=== PATIENT | female | born 1965 | race Hispanic/Latino ===

== ENCOUNTER 2020-08-19 11:01 | Emergency (ER) | payer SELFPAY ==
[~2020-08-19] VITALS: Ht 157.5 cm; Wt 61.2 kg
[~2020-08-19 11:01] MED LIST: LISINOPRIL10 MG PO; NAPROSYN500 MG PO; THYROID MED PO
[2020-08-19] MEDS ORDERED: MAGNESIUM/ALUMINUM/SIMETHICONE 30 ML UDC PO ONE (11:30)
[2020-08-19] MEDS ORDERED: LIDOCAINE VISC 2% SOLN 15 ML UDC PO ONE (11:30)
[2020-08-19] MEDS ORDERED: BELLADONNA ALK/PHENOBARBITAL 5 ML UDC PO ONE (11:30)
== END 2020-08-19 12:44 | disposition home or self-care (01) ==
LOC: ER 11:03
DX: R10.13 Epigastric pain (principal); K21.9 Gastro-esophageal reflux disease without esophagitis; E78.5 Hyperlipidemia, unspecified; Z87.442 Personal history of urinary calculi; F17.210 Nicotine dependence, cigarettes, uncomplicated
CPT/HCPCS: 99283

== ENCOUNTER 2020-10-22 10:03 | Emergency (ER) | payer SELFPAY ==
[~2020-10-22] VITALS: Ht 157.5 cm; Wt 61.2 kg
[2020-10-22] MEDS ORDERED: KETOROLAC TROMETHAMINE 30 MG/ML VIAL IV STA (10:29)
[2020-10-22 10:49] LABS: BASOPHILS # (AUTO) 0.1 (0.0-0.1); BASOPHILS % 0.9 % (0.0-1.0); EOSINOPHILS # (AUTO) 0.3 (0.0-0.4); EOSINOPHILS % 4.4 % (0.0-6.0); HEMATOCRIT 36.2 % (34.2-44.1); HEMOGLOBIN 12.3 g/dL (12.0-16.0); LYMPHOCYTES # (AUTO) 1.9 (1.0-3.2); LYMPHOCYTES % 33.2 % (18.0-39.1); MEAN CORPUSCULAR VOLUME 103.1 fL (81-99); MONOCYTES # (AUTO) 0.5 (0.2-0.8); MONOCYTES % 8.1 % (4.4-11.3); RED BLOOD COUNT 3.51 x10e6/uL (3.6-5.1); RED CELL DISTRIBUTION WIDTH 14.6 % (11.7-14.4)
[2020-10-22 10:50] LABS: PLATELET COUNT 58 x10e3/uL (140-360)
[2020-10-22 11:06] LABS: ALANINE AMINOTRANSFERASE 166 IU/L (0-55); ALBUMIN 3.5 g/dL (3.5-5.0); ALBUMIN/GLOBULIN RATIO 1.1 (0.8-2.0); ALKALINE PHOSPHATASE 294 IU/L (40-150); ANION GAP 13.3 mmol/L (8-16); BLOOD UREA NITROGEN 7 mg/dL (7-26); BUN/CREATININE RATIO 10 (6-25); CARBON DIOXIDE 23 mmol/L (22-29); CHLORIDE 108 mmol/L (98-107); CREATININE, SERUM 0.67 mg/dL (0.57-1.11); EST GLOMERULAR FILTRATION RATE > 60 ML/MIN (60-); GLUCOSE 136 mg/dL (74-118); POTASSIUM 4.3 mmol/L (3.5-5.1); SODIUM 140 mmol/L (136-145)
== END 2020-10-22 11:36 | disposition home or self-care (01) ==
LOC: ER 10:32
DX: R07.89 Other chest pain (principal); I10 Essential (primary) hypertension; M19.019 Primary osteoarthritis, unspecified shoulder
CPT/HCPCS: 36415; 71045; 80053; 83690; 84484; 85025; 93005; 99284; J1885

== ENCOUNTER 2020-11-23 10:52 | Emergency (ER) | payer SELFPAY ==
[~2020-11-23] VITALS: Ht 157.5 cm; Wt 61.2 kg
[2020-11-23 12:39] VITALS: BP 143/79
== END 2020-11-23 12:47 | disposition home or self-care (01) ==
LOC: ER 11:12
DX: S06.0X0A Concussion without loss of consciousness, initial encounter (principal); W18.30XA Fall on same level, unspecified, initial encounter; Y93.01 Activity, walking, marching and hiking; Y92.008 Other place in unspecified non-institutional (private) residence as the place of occurrence of the external cause; I10 Essential (primary) hypertension; E78.5 Hyperlipidemia, unspecified; K21.9 Gastro-esophageal reflux disease without esophagitis; Z87.442 Personal history of urinary calculi; F17.210 Nicotine dependence, cigarettes, uncomplicated
CPT/HCPCS: 70450; 99283

== ENCOUNTER 2021-02-16 09:10 | Emergency (ER) ==
[~2021-02-16] VITALS: Ht 157.5 cm; Wt 61.2 kg
[2021-02-16] MEDS ORDERED: OXYMETAZOLINE HCL 0.05% NAS 1 SPRAY BTL ONE (09:29)
[2021-02-16] MEDS ORDERED: OXYMETAZOLINE HCL 0.05% NAS 1 SPRAY BTL NR (09:30)
[2021-02-16 12:31] VITALS: BP 156/69
== END 2021-02-16 12:32 | disposition home or self-care (01) ==
LOC: ER 09:15
DX: R04.0 Epistaxis (principal); R05 Cough; J40 Bronchitis, not specified as acute or chronic; M79.18 Myalgia, other site; I10 Essential (primary) hypertension; E78.5 Hyperlipidemia, unspecified; K21.9 Gastro-esophageal reflux disease without esophagitis; Z87.442 Personal history of urinary calculi
CPT/HCPCS: 71045; 99283

== ENCOUNTER 2021-03-25 16:03 | Inpatient (IN) | payer SELFPAY ==
[~2021-03-25] VITALS: Ht 157.5 cm; Wt 75.7 kg
[2021-03-25] MEDS ORDERED: ONDANSETRON HCL INJ 2MG/ML 2ML 2 MG/ML VIAL IV STA (17:18)
[2021-03-25] MEDS ORDERED: SODIUM CHLORIDE 0.9% 1000ML 1,000 ML IV ONE ×2 (17:30→18:00)
[2021-03-25 17:42] LABS: BASOPHILS # (AUTO) 0.2 (0.0-0.1); BASOPHILS % 0.8 % (0.0-1.0); EOSINOPHILS # (AUTO) 0.6 (0.0-0.4); EOSINOPHILS % 3.1 % (0.0-6.0); HEMATOCRIT 26.6 % (34.2-44.1); HEMOGLOBIN 8.7 g/dL (12.0-16.0); LYMPHOCYTES % 20.6 % (18.0-39.1); MEAN CORPUSCULAR HEMOGLOBIN 35.7 pg (28-32); MEAN CORPUSCULAR HGB CONC 32.7 g/dL (31-35); MONOCYTES # (AUTO) 1.3 (0.2-0.8); MONOCYTES % 6.4 % (4.4-11.3); NEUTROPHILS # (AUTO) 13.2 (2.1-6.9); NEUTROPHILS % 67.6 % (38.7-80.0); PLATELET COUNT 133 x10e3/uL (140-360); RED BLOOD COUNT 2.44 x10e6/uL (3.6-5.1)
[2021-03-25 17:51] LABS: INR 1.64; PROTHROMBIN TIME 20.3 seconds (11.9-14.5)
[2021-03-25 17:52] LABS: PARTIAL THROMBOPLASTIN TIME 36.2 seconds (23.8-35.5)
[2021-03-25 17:57] LABS: AMYLASE 46 U/L (25-125); LIPASE 87 U/L (8-78)
[2021-03-25 17:59] LABS: ALBUMIN 2.3 g/dL (3.5-5.0); ALBUMIN/GLOBULIN RATIO 0.6 (0.8-2.0); ANION GAP 10.8 mmol/L (8-16); CREATININE, SERUM 0.67 mg/dL (0.57-1.11); POTASSIUM 4.8 mmol/L (3.5-5.1)
[2021-03-25] MEDS ORDERED: CEFEPIME 1 GM in SODIUM CHLORIDE 0.9% 50ML 50 ML IV ONE (18:00)
[2021-03-25 18:06] LABS: CREATINE KINASE MB 0.5 ng/mL (0-5.0)
[2021-03-25] MEDS ORDERED: CEFEPIME HCL 1 GM VIAL ONE (18:10)
[2021-03-25] MEDS ORDERED: SODIUM CHLORIDE 0.9% 50ML 50 ML ONE (19:16)
[2021-03-25] MEDS ORDERED: IOPAMIDOL 370 MG/ML 200 ML INFUS..BTL INJ ONE (19:16)
[2021-03-25] MEDS ORDERED: SODIUM CHLORIDE 0.9% 1000ML 1,000 ML ONE (19:50)
[2021-03-25] MEDS ORDERED: LISINOPRIL-HCT1 EAC2 PO (19:57)
[2021-03-25] MEDS ORDERED: CYCLOBENZAPRINE5 MG PO (19:57)
[2021-03-25 21:15] LABS: CLARITY,URINE CLEAR (CLEAR); COLOR,URINE YELLOW (YELLOW); KETONES,URINE NEGATIVE (NEGATIVE); LEUKOCYTE ESTERASE ,URINE NEGATIVE (NEGATIVE); NITRITE,URINE NEGATIVE (NEGATIVE); PROTEIN,URINE DIPSTICK NEGATIVE (NEGATIVE)
[2021-03-25 21:16] LABS: AMPHETAMINES SCREEN,URINE NEGATIVE (NEGATIVE); BENZODIAZEPINES SCREEN,URINE NEGATIVE (NEGATIVE); PHENCYCLIDINE SCREEN,URINE NEGATIVE (NEGATIVE); URINE UROBILINOGEN 0.2 mg/dL (0.2 - 1)
[2021-03-25 21:18] LABS: BACTERIA,URINE RARE /HPF; EPITHELIAL CELLS,URINE RARE /LPF; RBC,URINE 0-5 /HPF (0-5); WBC,URINE (MAN) 0-5 /HPF (0-5)
[2021-03-25 21:29] LABS: EOSINOPHILS % (MANUAL) 4 % (0-7); LYMPHOCYTES % (MANUAL) 10 % (19-48); MONOCYTES % (MANUAL) 4 % (3.4-9.0); NEUTROPHILS % (MANUAL) 80 % (40-74)
[2021-03-25 21:30] LABS: PLATELET ESTIMATE SLIGHTLY DECREASED; PLATELET MORPHOLOGY COMMENT NORMAL
[2021-03-25] MEDS ORDERED: SODIUM CHLORIDE 0.9% 250ML 250 ML IV ONE (21:30)
[2021-03-25 21:31] LABS: ANISOCYTOSIS SLIGHT; POLYCHROMASIA FEW
[2021-03-25 22:14] VITALS: BP 117/75
[2021-03-25 22:20] VITALS: BP 117/75
[2021-03-25 22:28] VITALS: BP 117/75
[2021-03-25] MEDS: SODIUM CHLORIDE 0.9% 1000ML 1,000 ML IV SCH (23:05)
[2021-03-25 23:08] VITALS: BP 114/71
[2021-03-26] VITALS (26 sets, daily range): BP systolic 102–139; BP diastolic 59–78
[2021-03-26] MEDS: OCTREOTIDE ACETATE 500 MCG in SODIUM CHLORIDE 0.9% 250ML 250 ML IV SCH ×4 (00:17→21:04)
[2021-03-26 00:43] LABS: HEMOGLOBIN 7.5 g/dL (12.0-16.0)
[2021-03-26 00:45] LABS: HEMATOCRIT 22.7 % (34.2-44.1)
[2021-03-26] MEDS: CEFEPIME 1 GM in SODIUM CHLORIDE 0.9% 50ML 50 ML IV SCH ×3 (04:38→18:33)
[2021-03-26 04:59] LABS: BASOPHILS # (AUTO) 0.1 (0.0-0.1); BASOPHILS % 0.6 % (0.0-1.0); EOSINOPHILS # (AUTO) 0.7 (0.0-0.4); EOSINOPHILS % 6.4 % (0.0-6.0); LYMPHOCYTES # (AUTO) 3.2 (1.0-3.2); LYMPHOCYTES % 28.6 % (18.0-39.1); MEAN CORPUSCULAR HEMOGLOBIN 35.3 pg (28-32); MEAN CORPUSCULAR HGB CONC 32.2 g/dL (31-35); MEAN CORPUSCULAR VOLUME 109.8 fL (81-99); MONOCYTES # (AUTO) 0.7 (0.2-0.8); MONOCYTES % 6.3 % (4.4-11.3); NEUTROPHILS # (AUTO) 6.5 (2.1-6.9); NEUTROPHILS % 57.3 % (38.7-80.0); PLATELET COUNT 76 x10e3/uL (140-360); RED BLOOD COUNT 1.84 x10e6/uL (3.6-5.1); RED CELL DISTRIBUTION WIDTH 16.6 % (11.7-14.4)
[2021-03-26 05:04] LABS: HEMATOCRIT 20.2 % (34.2-44.1); HEMOGLOBIN 6.5 g/dL (12.0-16.0)
[2021-03-26 05:17] LABS: ALBUMIN 2.1 g/dL (3.5-5.0); ALBUMIN/GLOBULIN RATIO 0.7 (0.8-2.0); ANION GAP 10.5 mmol/L (8-16); CALCIUM 7.6 mg/dL (8.4-10.2); CREATININE, SERUM 0.62 mg/dL (0.57-1.11); POTASSIUM 4.5 mmol/L (3.5-5.1)
[2021-03-26] MEDS ORDERED: PROPRANOLOL HCL 1 MG/ML VIAL IV ONE (05:30)
[2021-03-26] MEDS ORDERED: SODIUM CHLORIDE 0.9% 250ML 250 ML ONE (05:56)
[2021-03-26] MEDS ORDERED: PROPRANOLOL HCL 10 MG TAB PO ONE (06:00)
[2021-03-26] MEDS ORDERED: SODIUM CHLORIDE 0.9% 250ML 250 ML IV ONE (06:00)
[2021-03-26] MEDS ORDERED: PROPRANOLOL HCL 10 MG TAB ONE (06:12)
[2021-03-26 07:26] LABS: POLYCHROMASIA FEW
[2021-03-26 07:27] LABS: PLATELET ESTIMATE MODERATELY DECREASED
[2021-03-26 07:28] LABS: PLATELET MORPHOLOGY COMMENT NORMAL; RBC MORPHOLOGY COMMENT ABNORMAL
[2021-03-26] MEDS: SODIUM CHLORIDE 0.9% 1000ML 1,000 ML IV SCH ×3 (07:56→23:34)
[2021-03-26] MEDS ORDERED: PROPRANOLOL HCL 1 MG/ML VIAL IV SCH (09:00)
[2021-03-26] MEDS ORDERED: FUROSEMIDE INJ 10 MG/ML 2 ML VIAL IV ONE ×2 (09:00→16:00)
[2021-03-26] MEDS ORDERED: LACTULOSE SYRUP 20 GM/30 ML UDC PO PRN (09:15)
[2021-03-26] MEDS ORDERED: PHYTONADIONE 10 MG/ML AMP SQ ONE (10:00)
[2021-03-26 10:33] LABS: FREE THYROXINE INDEX 1.6474 (1.4-3.8); THYROID STIMULATING HORMONE 1.139 uIU/mL (0.350-4.940)
[2021-03-26 16:32] LABS: BASOPHILS # (AUTO) 0.1 (0.0-0.1); EOSINOPHILS # (AUTO) 1.3 (0.0-0.4); EOSINOPHILS % 13.6 % (0.0-6.0); HEMATOCRIT 28.2 % (34.2-44.1); HEMOGLOBIN 9.4 g/dL (12.0-16.0); LYMPHOCYTES # (AUTO) 2.5 (1.0-3.2); LYMPHOCYTES % 25.5 % (18.0-39.1); MEAN CORPUSCULAR HEMOGLOBIN 33.6 pg (28-32); MEAN CORPUSCULAR HGB CONC 33.3 g/dL (31-35); MEAN CORPUSCULAR VOLUME 100.7 fL (81-99); MONOCYTES # (AUTO) 0.7 (0.2-0.8); MONOCYTES % 7.5 % (4.4-11.3); NEUTROPHILS % 51.9 % (38.7-80.0); PLATELET COUNT 67 x10e3/uL (140-360)
[2021-03-26] MEDS: PROPRANOLOL HCL 10 MG TAB PO SCH (18:21)
[2021-03-26] MEDS ORDERED: HYDRALAZINE HCL 20 MG/ML VIAL ONE (20:45)
[2021-03-27] VITALS (15 sets, daily range): BP systolic 106–136; BP diastolic 60–88
[2021-03-27] MEDS ORDERED: SODIUM CHLORIDE 0.9% 50ML 50 ML IV SCH (00:45)
[2021-03-27] MEDS ORDERED: PHYTONADIONE 10 MG/ML AMP IV ONE (00:45)
[2021-03-27] MEDS ORDERED: PHYTONADIONE 10MG/ML 2 ML ONE (00:54)
[2021-03-27] MEDS ORDERED: SODIUM CHLORIDE 0.9% 50ML 50 ML ONE (00:55)
[2021-03-27] MEDS ORDERED: PHYTONADIONE 10MG/ML 20 MG in SODIUM CHLORIDE 0.9% 50ML 50 ML IV ONE (01:00)
[2021-03-27] MEDS: CEFEPIME 1 GM in SODIUM CHLORIDE 0.9% 50ML 50 ML IV SCH ×2 (01:59→09:26)
[2021-03-27 04:53] LABS: BASOPHILS # (AUTO) 0.1 (0.0-0.1); BASOPHILS % 0.7 % (0.0-1.0); EOSINOPHILS # (AUTO) 0.6 (0.0-0.4); EOSINOPHILS % 7.5 % (0.0-6.0); HEMATOCRIT 29.4 % (34.2-44.1); LYMPHOCYTES % 24.3 % (18.0-39.1); MEAN CORPUSCULAR HEMOGLOBIN 34.2 pg (28-32); MEAN CORPUSCULAR VOLUME 100.7 fL (81-99); MONOCYTES # (AUTO) 0.6 (0.2-0.8); MONOCYTES % 7.2 % (4.4-11.3); NEUTROPHILS % 59.3 % (38.7-80.0); PLATELET COUNT 63 x10e3/uL (140-360); RED BLOOD COUNT 2.92 x10e6/uL (3.6-5.1); RED CELL DISTRIBUTION WIDTH 17.8 % (11.7-14.4)
[2021-03-27 05:07] LABS: INR 1.64; PROTHROMBIN TIME 20.3 seconds (11.9-14.5)
[2021-03-27 05:17] LABS: ALBUMIN 1.9 g/dL (3.5-5.0); ALBUMIN/GLOBULIN RATIO 0.7 (0.8-2.0); ANION GAP 7.6 mmol/L (8-16); CALCIUM 7.1 mg/dL (8.4-10.2); CREATININE, SERUM 0.61 mg/dL (0.57-1.11); POTASSIUM 3.6 mmol/L (3.5-5.1)
[2021-03-27] MEDS: PROPRANOLOL HCL 10 MG TAB PO SCH (09:00)
== END 2021-03-27 13:15 | disposition left against medical advice (07) | DRG 432 ==
LOC: ER 17:43 → ERHOLD 21:24 → ICU 21:56
PROVIDERS: ADMIT Internal Medicine; ATTEND Internal Medicine
PROC: 02HV33Z Insertion of Infusion Device into Superior Vena Cava, Percutaneous Approach (ICD-10-PCS; principal; 2021-03-26)
PROC: 30233N1 Transfusion of Nonautologous Red Blood Cells into Peripheral Vein, Percutaneous Approach (ICD-10-PCS; 2021-03-26)
DX: K70.31 Alcoholic cirrhosis of liver with ascites (principal); I85.11 Secondary esophageal varices with bleeding; D62 Acute posthemorrhagic anemia; F10.21 Alcohol dependence, in remission; Z72.0 Tobacco use; I10 Essential (primary) hypertension; K21.9 Gastro-esophageal reflux disease without esophagitis; E78.5 Hyperlipidemia, unspecified; Z87.442 Personal history of urinary calculi
CPT/HCPCS: 36415; 36569; 71045; 74177; 80053; 80074; 80307; 80320; 81001; 82105; 82140; 82150; 82550; 82553; 82607; 82746; 83605; 83690; 84436; 84443; 84479; 84484; 85014; 85018; 85025; 85610; 85730; 86704; 86850; 86900; 86920; 87040; 93005; 99284; J0360; J0692; J1940; J2353; J2405; J3430; J7030; J7050; P9016; Q9967

== ENCOUNTER 2021-04-20 20:53 | Emergency (ER) | payer SELFPAY ==
[~2021-04-20] VITALS: Ht 157.5 cm; Wt 68.0 kg
[~2021-04-20 20:53] MED LIST changes: +CYCLOBENZAPRINE5 MG PO; +LISINOPRIL-HCT1 EAC2 PO
== END 2021-04-20 23:20 | disposition left against medical advice (07) ==
LOC: ER 21:13
DX: S00.81XA Abrasion of other part of head, initial encounter (principal); W18.2XXA Fall in (into) shower or empty bathtub, initial encounter; Y93.E1 Activity, personal bathing and showering; Y92.002 Bathroom of unspecified non-institutional (private) residence as the place of occurrence of the external cause; I10 Essential (primary) hypertension; E78.5 Hyperlipidemia, unspecified; K76.9 Liver disease, unspecified; K21.9 Gastro-esophageal reflux disease without esophagitis; Z87.442 Personal history of urinary calculi; F17.210 Nicotine dependence, cigarettes, uncomplicated
CPT/HCPCS: 70450; 72125; 93005

== ENCOUNTER 2022-09-08 12:10 | Emergency (ER) | payer SELFPAY ==
[~2022-09-08] VITALS: Ht 157.5 cm; Wt 68.0 kg
[2022-09-08] MEDS ORDERED: METHYLPREDNISOLONE SOD SUCC 125 MG/2ML VIAL IV STA (12:33)
[2022-09-08 12:44] LABS: BASOPHILS # (AUTO) 0.1 (0.0-0.1); BASOPHILS % 1.6 % (0.0-1.0); EOSINOPHILS # (AUTO) 0.4 (0.0-0.4); EOSINOPHILS % 6.1 % (0.0-6.0); HEMATOCRIT 36.9 % (34.2-44.1); HEMOGLOBIN 12.5 g/dL (12.0-16.0); LYMPHOCYTES # (AUTO) 2.7 (1.0-3.2); LYMPHOCYTES % 46.8 % (18.0-39.1); MEAN CORPUSCULAR HEMOGLOBIN 36.7 pg (28-32); MEAN CORPUSCULAR HGB CONC 33.9 g/dL (31-35); MEAN CORPUSCULAR VOLUME 108.2 fL (81-99); MONOCYTES # (AUTO) 0.5 (0.2-0.8); MONOCYTES % 7.8 % (4.4-11.3); NEUTROPHILS # (AUTO) 2.2 (2.1-6.9); NEUTROPHILS % 37.5 % (38.7-80.0); PLATELET COUNT 73 x10e3/uL (140-360); RED BLOOD COUNT 3.41 x10e6/uL (3.6-5.1)
[2022-09-08] MEDS ORDERED: SODIUM CHLORIDE 0.9% 500ML 500 ML IV ONE (12:45)
[2022-09-08] MEDS ORDERED: ALBUTEROL/IPRATROPIUM 3 ML NEB NEB ONE (12:45)
[2022-09-08 12:58] LABS: INR 1.68
[2022-09-08 12:59] LABS: PARTIAL THROMBOPLASTIN TIME 44.6 seconds (23.8-35.5)
[2022-09-08 13:06] LABS: ALBUMIN 2.8 g/dL (3.5-5.0); ALBUMIN/GLOBULIN RATIO 0.8 (0.8-2.0); ANION GAP 13.8 mmol/L (8-16); CALCIUM 8.1 mg/dL (8.4-10.2); CREATININE, SERUM 0.62 mg/dL (0.57-1.11); MAGNESIUM 1.5 MG/DL (1.3-2.1); POTASSIUM 3.8 mmol/L (3.5-5.1)
[2022-09-08] MEDS ORDERED: PROAIR RESPICL90 MCG INH (14:51)
[2022-09-08] MEDS ORDERED: DOXYCYCLINE HY100 M3 PO (14:51)
[2022-09-08] MEDS ORDERED: PREDNISONE20 MG PO (14:51)
== END 2022-09-08 15:17 | disposition home or self-care (01) ==
LOC: ER 12:20
DX: J40 Bronchitis, not specified as acute or chronic (principal); R55 Syncope and collapse; I10 Essential (primary) hypertension; K74.60 Unspecified cirrhosis of liver; Z20.822 Contact with and (suspected) exposure to COVID-19; Z79.899 Other long term (current) drug therapy; Z87.891 Personal history of nicotine dependence
CPT/HCPCS: 36415; 70450; 71045; 72125; 80053; 82550; 82553; 83735; 83880; 84484; 85025; 85610; 85730; 87040; 93005; 94799; 99284; J2930; J7040; U0002

== ENCOUNTER 2022-10-17 20:54 | Emergency (ER) | payer SELFPAY ==
[~2022-10-17] VITALS: Ht 157.5 cm; Wt 68.0 kg
[~2022-10-17 20:54] MED LIST changes: +DOXYCYCLINE HY100 M3 PO; +PREDNISONE20 MG PO; +PROAIR RESPICL90 MCG INH
[2022-10-17 21:47] LABS: BASOPHILS # (AUTO) 0.1 (0.0-0.1); BASOPHILS % 1.3 % (0.0-1.0); EOSINOPHILS # (AUTO) 0.4 (0.0-0.4); EOSINOPHILS % 6.7 % (0.0-6.0); HEMATOCRIT 38.2 % (34.2-44.1); HEMOGLOBIN 12.9 g/dL (12.0-16.0); LYMPHOCYTES # (AUTO) 2.5 (1.0-3.2); LYMPHOCYTES % 44.9 % (18.0-39.1); MEAN CORPUSCULAR HEMOGLOBIN 35.5 pg (28-32); MEAN CORPUSCULAR HGB CONC 33.8 g/dL (31-35); MEAN CORPUSCULAR VOLUME 105.2 fL (81-99); MONOCYTES # (AUTO) 0.4 (0.2-0.8); MONOCYTES % 7.5 % (4.4-11.3); NEUTROPHILS # (AUTO) 2.2 (2.1-6.9); NEUTROPHILS % 39.2 % (38.7-80.0); PLATELET COUNT 51 x10e3/uL (140-360); RED BLOOD COUNT 3.63 x10e6/uL (3.6-5.1); RED CELL DISTRIBUTION WIDTH 14.1 % (11.7-14.4)
[2022-10-17 21:52] LABS: ANION GAP 15.7 mmol/L (8-16); CREATININE, SERUM 0.62 mg/dL (0.57-1.11); POTASSIUM 3.7 mmol/L (3.5-5.1)
[2022-10-17 21:55] LABS: CREATINE KINASE MB 4.5 ng/mL (0-5.0)
== END 2022-10-17 22:50 | disposition home or self-care (01) ==
LOC: ER 21:10
DX: R07.9 Chest pain, unspecified (principal); I10 Essential (primary) hypertension; E78.5 Hyperlipidemia, unspecified; K76.9 Liver disease, unspecified; K21.9 Gastro-esophageal reflux disease without esophagitis; R94.31 Abnormal electrocardiogram [ECG] [EKG]
CPT/HCPCS: 36415; 71045; 80048; 82550; 82553; 84484; 85025; 93005; 99284

== ENCOUNTER 2023-02-19 09:41 | Emergency (ER) | payer OTHER ==
[~2023-02-19] VITALS: Ht 157.5 cm; Wt 68.0 kg
[2023-02-19 10:35] LABS: ALBUMIN 2.9 g/dL (3.5-5.0); ALBUMIN/GLOBULIN RATIO 0.7 (0.8-2.0); ANION GAP 12.6 mmol/L (8-16); CALCIUM 8.1 mg/dL (8.4-10.2); CREATININE, SERUM 0.64 mg/dL (0.57-1.11); POTASSIUM 3.6 mmol/L (3.5-5.1)
[2023-02-19 11:57] LABS: BASOPHILS # (AUTO) 0.1 (0.0-0.1); BASOPHILS % 0.9 % (0.0-1.0); EOSINOPHILS % 0.3 % (0.0-6.0); HEMATOCRIT 34.4 % (34.2-44.1); HEMOGLOBIN 12.1 g/dL (12.0-16.0); LYMPHOCYTES # (AUTO) 1.3 (1.0-3.2); LYMPHOCYTES % 19.1 % (18.0-39.1); MEAN CORPUSCULAR HEMOGLOBIN 35.9 pg (28-32); MEAN CORPUSCULAR HGB CONC 35.2 g/dL (31-35); MEAN CORPUSCULAR VOLUME 102.1 fL (81-99); MONOCYTES # (AUTO) 0.5 (0.2-0.8); MONOCYTES % 7.2 % (4.4-11.3); NEUTROPHILS # (AUTO) 4.8 (2.1-6.9); NEUTROPHILS % 71.4 % (38.7-80.0); PLATELET COUNT 84 x10e3/uL (140-360); RED BLOOD COUNT 3.37 x10e6/uL (3.6-5.1)
[2023-02-19] MEDS ORDERED: NICARDIPINE 20MG/200ML PREMIX 200 ML IV SCH (12:00)
[2023-02-19] MEDS ORDERED: ONDANSETRON HCL INJ 2MG/ML 2ML 2 MG/ML VIAL IV STA (12:01)
[2023-02-19 12:13] LABS: INR 3.54
[2023-02-19 12:15] LABS: PROTHROMBIN TIME 35.7 seconds (11.9-14.5)
[2023-02-19 12:27] VITALS: O2SAT 100
== END 2023-02-19 12:40 | disposition other institution (70) ==
LOC: ER 09:46
DX: S06.360A Traumatic hemorrhage of cerebrum, unspecified, without loss of consciousness, initial encounter (principal); W01.198A Fall on same level from slipping, tripping and stumbling with subsequent striking against other object, initial encounter; Y93.01 Activity, walking, marching and hiking; Y92.89 Other specified places as the place of occurrence of the external cause; I10 Essential (primary) hypertension; E78.5 Hyperlipidemia, unspecified; K21.9 Gastro-esophageal reflux disease without esophagitis; K76.9 Liver disease, unspecified; Z87.442 Personal history of urinary calculi; F17.210 Nicotine dependence, cigarettes, uncomplicated
CPT/HCPCS: 0223U; 36415; 70450; 70486; 72125; 73090; 73130; 80053; 80320; 85025; 85610; 85730; 99284; J2405

== ENCOUNTER 2024-08-17 04:25 | Emergency (ER) | payer OTHER ==
[~2024-08-17] VITALS: Ht 157.5 cm; Wt 68.0 kg
[2024-08-17 04:33] VITALS: PULSE 72; RESP 22; TEMP 97.8; O2SAT 98
== END 2024-08-17 04:55 | disposition home or self-care (01) ==
LOC: ER 04:37
DX: F10.129 Alcohol abuse with intoxication, unspecified (principal); I10 Essential (primary) hypertension; E78.5 Hyperlipidemia, unspecified; K76.9 Liver disease, unspecified; K21.9 Gastro-esophageal reflux disease without esophagitis; Z87.442 Personal history of urinary calculi
CPT/HCPCS: 99282

== ENCOUNTER → 2024-08-30 | Outpatient (REF) | payer OTHER | LOC: RAD 09:42 | PROVIDERS: ATTEND Internal Medicine | DX: M19.071 Primary osteoarthritis, right ankle and foot (principal); M25.561 Pain in right knee ==

== ENCOUNTER 2025-03-31 19:18 | Inpatient (IN) | payer OTHER ==
[~2025-03-31] VITALS: Ht 157.5 cm; Wt 94.3 kg
[2025-03-31] VITALS (10 sets, daily range): BP systolic 68–85; BP diastolic 37–54; PULSE 55–80; RESP 12–20; TEMP 93.4–97.8; O2SAT 100
[2025-03-31 20:07] LABS: BASOPHILS % 0.6 % (0.0-1.0); EOSINOPHILS % 3.3 % (0.0-6.0); LYMPHOCYTES % 28.6 % (18.0-39.1); MONOCYTES % 15.4 % (4.4-11.3); NEUTROPHILS % 50.8 % (38.7-80.0); RED CELL DISTRIBUTION WIDTH 19.1 % (11.7-14.4)
[2025-03-31 20:10] LABS: INR 2.43
[2025-03-31] MEDS: SODIUM CHLORIDE 0.9% 1000ML 2,520 ML IV SCH (20:11)
[2025-03-31 20:17] LABS: EST GLOMERULAR FILTRATION RATE 31.0 ML/MIN (>=60)
[2025-03-31] MEDS ORDERED: ONDANSETRON HCL INJ 2MG/ML 2ML 2 MG/ML VIAL IV PRN (21:00)
[2025-03-31] MEDS ORDERED: SODIUM CHLORIDE FLUSH 10 ML SYR INJ PRN (21:00)
[2025-03-31] MEDS ORDERED: LORAZEPAM INJ 2 MG/ML VIAL IV PRN (22:00)
[2025-03-31] MEDS ORDERED: POLYETHYLENE GLYCOL 3350 17 GM PACK PO PRN (22:15)
[2025-03-31] MEDS: ACETAMINOPHEN 325 MG TAB PO STA (22:26)
[2025-03-31] MEDS: THIAMINE HCL INJ 100 MG/ML 2ML VIAL IV ONE (22:29)
[2025-03-31] MEDS: OCTREOTIDE ACETATE 500 MCG in SODIUM CHLORIDE 0.9% 250ML 249 ML IV SCH (22:30)
[2025-03-31] MEDS: SODIUM CHLORIDE 0.9% 1000ML 1,000 ML ONE (22:30)
[2025-03-31] MEDS: MUPIROCIN 2% OINT 22 GM TUBE TOP SCH (22:31)
[2025-03-31] MEDS: PHYTONADIONE 10MG/ML INJ 20 MG in SODIUM CHLORIDE 0.9% 100 ML IV ONE (22:46)
[2025-03-31] MEDS: PHYTONADIONE 10 MG/ML AMP IV STA (22:46)
[2025-03-31] MEDS: VASOPRESSIN 60 UNIT in DEXTROSE 5% 50ML 50 ML IV SCH (23:43)
[2025-04-01] VITALS (99 sets, daily range): BP systolic 59–143; BP diastolic 34–109; PULSE 40–74; RESP 12–30; TEMP 96.6–97.7; O2SAT 97–100
[2025-04-01] MEDS: SODIUM CHLORIDE 0.9% 250ML 250 ML IV ONE (00:21)
[2025-04-01] MEDS: THIAMINE HCL INJ 100 MG/ML 2ML VIAL ONE (01:23)
[2025-04-01] MEDS: SODIUM CHLORIDE 0.9% 1000ML 1,000 ML ONE (01:23)
[2025-04-01] MEDS: MULTIVITAMINS- 12 INJECTION 10 ML, FOLIC ACID MDV 1 MG, THIAMINE HCL INJ 100 MG in SODI... IV ONE (01:55)
[2025-04-01] MEDS: Pantoprazole IV 80 MG in SODIUM CHLORIDE 0.9% 100 ML IV SCH (02:28)
[2025-04-01] MEDS: SODIUM CHLORIDE 0.9% 250ML 250 ML ONE (04:36)
[2025-04-01 08:01] LABS: BASOPHILS % 0.6 % (0.0-1.0); EOSINOPHILS % 3.9 % (0.0-6.0); LYMPHOCYTES % 31.5 % (18.0-39.1); MONOCYTES % 9.2 % (4.4-11.3); NEUTROPHILS % 53.9 % (38.7-80.0); RED CELL DISTRIBUTION WIDTH 25.4 % (11.7-14.4)
[2025-04-01] MEDS: DOCUSATE SODIUM 100 MG CAP PO SCH (08:08)
[2025-04-01] MEDS: MIDODRINE HCL 5 MG TABLET PO SCH (08:08)
[2025-04-01 08:18] LABS: EST GLOMERULAR FILTRATION RATE 41.0 ML/MIN (>=60); INR 2.02
[2025-04-01 08:29] LABS: CHOL/HDL RATIO 10.1 (3.0-3.6); LDL CHOLESTEROL 85.0 MG/DL (60-130)
[2025-04-01 09:13] LABS: AMPHETAMINES SCREEN,URINE NEGATIVE (NEGATIVE); CANNABINOIDS SCREEN,URINE NEGATIVE (NEGATIVE); COCAINE SCREEN,URINE NEGATIVE (NEGATIVE); METHADONE SCREEN, URINE NEGATIVE (NEGATIVE); OPIATES SCREEN,URINE NEGATIVE (NEGATIVE)
[2025-04-01 09:16] LABS: LEUKOCYTE ESTERASE ,URINE NEGATIVE (NEGATIVE); PROTEIN,URINE DIPSTICK 1+ (NEGATIVE); URINE UROBILINOGEN 1 mg/dL (0.2 - 1)
[2025-04-01 09:42] LABS: WBC,URINE (MAN) 0-5 /HPF (0-5)
[2025-04-01 09:43] LABS: EPITHELIAL CELLS,URINE FEW /LPF
[2025-04-01] MEDS: FUROSEMIDE INJ 10 MG/ML 4 ML VIAL IV ONE (14:05)
[2025-04-01] MEDS: SOD POLYSTYRENE SULFONATE SUSP 15 GM/60 ML BTL PO ONE (14:06)
[2025-04-01] MEDS: SODIUM CHLORIDE 0.9% 1000ML 1,000 ML IV SCH (14:06)
[2025-04-01] MEDS: CALCIUM CARBONATE 500 MG CHEWABLE TABS PO SCH (16:00)
[2025-04-01] MEDS: SODIUM BICARBONATE 650 MG TAB PO SCH (16:02)
[2025-04-01] MEDS: ACETAMINOPHEN 325 MG TAB PO PRN (20:08)
[2025-04-01] MEDS ORDERED: PHYTONADIONE 10 MG/ML AMP IV ONE (21:45)
[2025-04-01] MEDS: PHYTONADIONE 10MG/ML INJ 20 MG in SODIUM CHLORIDE 0.9% 100 ML IV STA (22:47)
[2025-04-02] VITALS (64 sets, daily range): BP systolic 103–143; BP diastolic 52–127; PULSE 39–71; RESP 11–22; TEMP 97.6–98.4; O2SAT 94–100
[2025-04-02] MEDS: FUROSEMIDE INJ 10 MG/ML 4 ML VIAL IV ONE (06:19)
[2025-04-02] MEDS: FOLIC ACID 1 MG TAB PO SCH (08:22)
[2025-04-02] MEDS: MULTIVITAMINS/MINERALS TAB PO SCH (08:22)
[2025-04-02] MEDS: THIAMINE HCL 100 MG TAB PO SCH (08:22)
[2025-04-02] MEDS: MULTIVITAMINS- 12 INJECTION 10 ML, FOLIC ACID MDV 1 MG, THIAMINE HCL INJ 100 MG in SODI... IV ONE (09:09)
[2025-04-02 09:31] LABS: BASOPHILS % 0.8 % (0.0-1.0); EOSINOPHILS % 6.1 % (0.0-6.0); LYMPHOCYTES % 25.8 % (18.0-39.1); MONOCYTES % 10.8 % (4.4-11.3); NEUTROPHILS % 55.9 % (38.7-80.0); RED CELL DISTRIBUTION WIDTH 25.7 % (11.7-14.4)
[2025-04-02 09:42] LABS: CALCIUM IONIZED 1.0 mmol/L (1.09-1.30)
[2025-04-02 10:11] LABS: EST GLOMERULAR FILTRATION RATE 33.0 ML/MIN (>=60); PHOSPHORUS 3.6 MG/DL (2.3-4.7)
[2025-04-02] MEDS: MAGNESIUM SULF 1GRAM/DEXTROSE 100 ML IV SCH (11:13)
[2025-04-02 11:29] LABS: ABG BASE EXCESS -8.0 mmol/L (-2 - 3); ABG HCO3 19 mmol/L (22-26); ABG OXYGEN SATURATION 45.0 % (95-98); ABG PCO2 37 mmHg (35-45); ABG PH 7.30 (7.35-7.45); ABG PO2 27 mmHg (80-105); ABG TCO2 20
[2025-04-03] VITALS (26 sets, daily range): BP systolic 111–181; BP diastolic 63–118; PULSE 50–71; RESP 13–20; TEMP 97.5–98.7; O2SAT 95–100
[2025-04-03] MEDS ORDERED: PHYTONADIONE 10 MG/ML AMP IV ONE (01:45)
[2025-04-03] MEDS: PHYTONADIONE 10MG/ML INJ 20 MG in SODIUM CHLORIDE 0.9% 100 ML IV ONE (01:57)
[2025-04-03 06:35] LABS: BASOPHILS % 0.7 % (0.0-1.0); EOSINOPHILS % 4.1 % (0.0-6.0); LYMPHOCYTES % 20.9 % (18.0-39.1); MONOCYTES % 11.2 % (4.4-11.3); NEUTROPHILS % 62.0 % (38.7-80.0); RED CELL DISTRIBUTION WIDTH 25.6 % (11.7-14.4)
[2025-04-03 06:50] LABS: INR 1.81
[2025-04-03 06:56] LABS: EST GLOMERULAR FILTRATION RATE 47.0 ML/MIN (>=60); PHOSPHORUS 2.5 MG/DL (2.3-4.7)
[2025-04-03] MEDS: SODIUM CHLORIDE 0.9% 250ML 250 ML IV ONE (09:14)
[2025-04-03] MEDS: SODIUM CHLORIDE 0.9% 250ML 250 ML ONE (09:15)
[2025-04-03 10:31] LABS: ABG BASE EXCESS -8.0 mmol/L (-2 - 3); ABG HCO3 18 mmol/L (22-26); ABG OXYGEN SATURATION 88.0 % (95-98); ABG PCO2 35 mmHg (35-45); ABG PH 7.32 (7.35-7.45); ABG PO2 58 mmHg (80-105); ABG TCO2 19
[2025-04-04] VITALS (19 sets, daily range): BP systolic 102–180; BP diastolic 49–90; PULSE 56–86; RESP 13–21; TEMP 98–98.5; O2SAT 97–100
[2025-04-04] MEDS: SODIUM CHLORIDE 0.9% IV ONE (01:54)
[2025-04-04] MEDS: PHYTONADIONE IV ONE (01:54)
[2025-04-04] MEDS: HYDRALAZINE HCL 20 MG/ML VIAL IV PRN (02:26)
[2025-04-04 05:57] LABS: BASOPHILS % 0.9 % (0.0-1.0); EOSINOPHILS % 3.7 % (0.0-6.0); LYMPHOCYTES % 23.3 % (18.0-39.1); MONOCYTES % 15.2 % (4.4-11.3); NEUTROPHILS % 55.5 % (38.7-80.0); RED CELL DISTRIBUTION WIDTH 24.7 % (11.7-14.4)
[2025-04-04 06:38] LABS: EST GLOMERULAR FILTRATION RATE 78.0 ML/MIN (>=60)
[2025-04-04 08:23] LABS: BASOPHILS % (MANUAL) 1 % (0-1.5); EOSINOPHILS % (MANUAL) 5 % (0-7); LYMPHOCYTES % (MANUAL) 12 % (19-48); MONOCYTES % (MANUAL) 9 % (3.4-9.0); NEUTROPHILS % (MANUAL) 73 % (40-74); NUCLEATED RED BLOOD CELLS 1; PLATELET ESTIMATE MARKEDLY DECREASED; PLATELET MORPHOLOGY COMMENT NORMAL; RBC MORPHOLOGY COMMENT NORMAL
[2025-04-04] MEDS ORDERED: ARTIFICIAL TEARS (OPTH) 15 ML BTL OU PRN (11:45)
[2025-04-04] MEDS: FUROSEMIDE 20 MG TAB PO ONE (16:28)
[2025-04-04] MEDS: POTASSIUM CHLORIDE 20 MEQ TAB CR PO STA (16:28)
[2025-04-05] VITALS (19 sets, daily range): BP systolic 131–170; BP diastolic 54–97; PULSE 50–73; RESP 13–24; TEMP 98–98.4; O2SAT 95–100
[2025-04-05 06:24] LABS: BASOPHILS % 0.6 % (0.0-1.0); EOSINOPHILS % 3.7 % (0.0-6.0); LYMPHOCYTES % 29.6 % (18.0-39.1); MONOCYTES % 13.2 % (4.4-11.3); NEUTROPHILS % 52.0 % (38.7-80.0); RED CELL DISTRIBUTION WIDTH 24.1 % (11.7-14.4)
[2025-04-05 06:45] LABS: INR 1.99
[2025-04-05 06:50] LABS: EST GLOMERULAR FILTRATION RATE 94.0 ML/MIN (>=60)
[2025-04-05] MEDS ORDERED: CARVEDILOL 12.5 MG TAB PO SCH (09:00)
[2025-04-05] MEDS: FUROSEMIDE 20 MG TAB PO SCH (09:42)
[2025-04-05] MEDS: POTASSIUM CHLORIDE 20 MEQ TAB CR PO SCH (09:43)
[2025-04-05] MEDS: CARVEDILOL 3.125 MG TAB PO SCH (09:43)
[2025-04-05 14:34] LABS: % IRON SATURATION 24.0 % (15-50); LACTATE DEHYDROGENASE 338.0 IU/L (125-220)
[2025-04-06] VITALS (16 sets, daily range): BP systolic 136–164; BP diastolic 63–95; PULSE 55–69; RESP 10–22; TEMP 98.4–98.9; O2SAT 96–99
[2025-04-06] MEDS: PHYTONADIONE 10 MG/ML AMP IV ONE (03:06)
[2025-04-06 06:45] LABS: FOLATE (REF LAB) >20.0 ng/mL (>3.0)
[2025-04-06 06:51] LABS: BASOPHILS % 1.1 % (0.0-1.0); EOSINOPHILS % 4.7 % (0.0-6.0); LYMPHOCYTES % 32.0 % (18.0-39.1); MONOCYTES % 16.1 % (4.4-11.3); NEUTROPHILS % 45.3 % (38.7-80.0); RED CELL DISTRIBUTION WIDTH 22.8 % (11.7-14.4)
[2025-04-06] MEDS: SODIUM CHLORIDE 0.9% 100 ML ONE (07:11)
[2025-04-06 07:28] LABS: EST GLOMERULAR FILTRATION RATE 101.0 ML/MIN (>=60); PHOSPHORUS 2.5 MG/DL (2.3-4.7)
[2025-04-06] MEDS: MAGNESIUM SULFATE 2GM/50ML 50 ML IV ONE ×2 (09:34→10:25)
[2025-04-06 09:41] LABS: ABG BASE EXCESS -7.0 mmol/L (-2 - 3); ABG HCO3 19 mmol/L (22-26); ABG OXYGEN SATURATION 81.0 % (95-98); ABG PCO2 35 mmHg (35-45); ABG PH 7.34 (7.35-7.45); ABG PO2 47 mmHg (80-105); ABG TCO2 20
[2025-04-06 10:33] LABS: PLATELET ESTIMATE MARKEDLY DECREASED; PLATELET MORPHOLOGY COMMENT NORMAL; RBC MORPHOLOGY COMMENT ABNORMAL
[2025-04-06] MEDS: SPIRONOLACTONE 25 MG TAB PO SCH (11:16)
[2025-04-07] VITALS (7 sets, daily range): BP systolic 132–161; BP diastolic 66–97; PULSE 60–68; RESP 16–18; TEMP 98.4–98.5; O2SAT 95–100
[2025-04-07] MEDS: PHYTONADIONE 10 MG/ML AMP IV ONE (03:12)
[2025-04-07] MEDS: SODIUM CHLORIDE 0.9% 100 ML ONE (03:48)
[2025-04-07 06:52] LABS: BASOPHILS % 0.7 % (0.0-1.0); EOSINOPHILS % 6.4 % (0.0-6.0); LYMPHOCYTES % 26.2 % (18.0-39.1); MONOCYTES % 16.4 % (4.4-11.3); NEUTROPHILS % 49.4 % (38.7-80.0); RED CELL DISTRIBUTION WIDTH 22.0 % (11.7-14.4)
[2025-04-07 07:03] LABS: INR 2.06
[2025-04-07 07:08] LABS: EST GLOMERULAR FILTRATION RATE 105.0 ML/MIN (>=60)
[2025-04-07] MEDS: IRON SUCROSE 100 MG in SODIUM CHLORIDE 0.9% 100 ML IV SCH (09:16)
[2025-04-07 18:24] LABS: INR 2.01
[2025-04-08] VITALS (8 sets, daily range): BP systolic 130–153; BP diastolic 60–76; PULSE 57–74; RESP 18–20; TEMP 97.8–99.5; O2SAT 92–100
[2025-04-08] MEDS: SODIUM CHLORIDE 0.9% 250ML 250 ML ONE (02:59)
[2025-04-08 07:40] LABS: BASOPHILS % 0.7 % (0.0-1.0); EOSINOPHILS % 5.4 % (0.0-6.0); LYMPHOCYTES % 31.9 % (18.0-39.1); MONOCYTES % 15.6 % (4.4-11.3); NEUTROPHILS % 45.9 % (38.7-80.0); RED CELL DISTRIBUTION WIDTH 21.4 % (11.7-14.4)
[2025-04-08 08:10] LABS: INR 1.74
[2025-04-08 08:24] LABS: EST GLOMERULAR FILTRATION RATE 102.0 ML/MIN (>=60)
[2025-04-08] MEDS: FUROSEMIDE 40 MG TAB PO SCH (09:26)
[2025-04-08] MEDS: SPIRONOLACTONE 25 MG TAB PO SCH (09:27)
[2025-04-08] MEDS: DEXAMETHASONE SOD PHOS 10 MG/1 ML VIAL IV ONE (11:58)
[2025-04-08] MEDS: PHYTONADIONE 10 MG/ML AMP IV ONE (21:25)
[2025-04-08] MEDS: SODIUM CHLORIDE 0.9% 100 ML ONE (22:08)
[2025-04-09] VITALS (8 sets, daily range): BP systolic 130–157; BP diastolic 59–82; PULSE 56–108; RESP 18–22; TEMP 97.8–98.7; O2SAT 94–100
[2025-04-09 05:39] LABS: BASOPHILS % 0.3 % (0.0-1.0); EOSINOPHILS % 0.1 % (0.0-6.0); LYMPHOCYTES % 9.7 % (18.0-39.1); MONOCYTES % 4.7 % (4.4-11.3); NEUTROPHILS % 84.0 % (38.7-80.0); RED CELL DISTRIBUTION WIDTH 21.2 % (11.7-14.4)
[2025-04-09 06:16] LABS: EST GLOMERULAR FILTRATION RATE 101.0 ML/MIN (>=60)
[2025-04-09 10:51] LABS: PLATELET ESTIMATE MARKEDLY DECREASED; PLATELET MORPHOLOGY COMMENT NORMAL
[2025-04-09 11:06] LABS: HAPTOGLOBIN <10 mg/dL (33-346)
[2025-04-09] MEDS ORDERED: ONDANSETRON HCL 4 MG ORAL DISINTEGRATING TAB PO PRN (14:15)
[2025-04-09] MEDS: SODIUM CHLORIDE 0.9% 1000ML 1,000 ML ONE (23:56)
[2025-04-10] VITALS (10 sets, daily range): BP systolic 126–146; BP diastolic 57–98; PULSE 52–94; RESP 18–53; TEMP 97.9–98.4; O2SAT 96–100
[2025-04-10 05:32] LABS: BASOPHILS % 0.1 % (0.0-1.0); EOSINOPHILS % 1.5 % (0.0-6.0); LYMPHOCYTES % 11.2 % (18.0-39.1); MONOCYTES % 8.4 % (4.4-11.3); NEUTROPHILS % 77.4 % (38.7-80.0); RED CELL DISTRIBUTION WIDTH 21.8 % (11.7-14.4)
[2025-04-10 05:59] LABS: INR 1.94
[2025-04-10 06:20] LABS: EST GLOMERULAR FILTRATION RATE 102.0 ML/MIN (>=60)
[2025-04-10] MEDS ORDERED: DEXAMETHASONE SOD PHOS 10 MG/1 ML VIAL IV ONE (14:15)
[2025-04-10] MEDS ORDERED: COREG3.125 MG PO (18:06)
[2025-04-10] MEDS ORDERED: FUROSEMIDE40 MG PO (18:06)
[2025-04-10] MEDS ORDERED: PANTOPRAZOLE SO40 MG PO (18:07)
[2025-04-10] MEDS ORDERED: FERROUS SULFAT325 MG PO (18:08)
== END 2025-04-10 20:27 | disposition home or self-care (01) | DRG 432 ==
LOC: ER 19:55 → ERHOLD 20:48 → ICU 21:56 → MED/SURG 04-07 14:09
PROVIDERS: ADMIT Internal Medicine; ATTEND Internal Medicine
PROC: 02HV33Z Insertion of Infusion Device into Superior Vena Cava, Percutaneous Approach (ICD-10-PCS; principal; 2025-03-31)
PROC: 30233N1 Transfusion of Nonautologous Red Blood Cells into Peripheral Vein, Percutaneous Approach (ICD-10-PCS; 2025-03-31)
PROC: 30233K1 Transfusion of Nonautologous Frozen Plasma into Peripheral Vein, Percutaneous Approach (ICD-10-PCS; 2025-03-31)
PROC: 3E043XZ Introduction of Vasopressor into Central Vein, Percutaneous Approach (ICD-10-PCS; 2025-03-31)
PROC: 4A133R1 Monitoring of Arterial Saturation, Peripheral, Percutaneous Approach (ICD-10-PCS; 2025-04-01)
PROC: HZ2ZZZZ Detoxification Services for Substance Abuse Treatment (ICD-10-PCS; 2025-04-01)
PROC: 30233R1 Transfusion of Nonautologous Platelets into Peripheral Vein, Percutaneous Approach (ICD-10-PCS; 2025-04-09)
DX: K70.31 Alcoholic cirrhosis of liver with ascites (principal); R57.1 Hypovolemic shock; D62 Acute posthemorrhagic anemia; E87.20 Acidosis, unspecified; K76.6 Portal hypertension; D68.4 Acquired coagulation factor deficiency; N17.9 Acute kidney failure, unspecified; I12.9 Hypertensive chronic kidney disease with stage 1 through stage 4 chronic kidney disease, or unspecified chronic kidney disease; R16.1 Splenomegaly, not elsewhere classified; E83.42 Hypomagnesemia; D69.59 Other secondary thrombocytopenia; N18.9 Chronic kidney disease, unspecified; E87.5 Hyperkalemia; D63.8 Anemia in other chronic diseases classified elsewhere; E86.0 Dehydration; K21.9 Gastro-esophageal reflux disease without esophagitis; E83.51 Hypocalcemia; E78.5 Hyperlipidemia, unspecified; M19.90 Unspecified osteoarthritis, unspecified site; F10.20 Alcohol dependence, uncomplicated; R07.89 Other chest pain; Z79.52 Long term (current) use of systemic steroids; Z86.73 Personal history of transient ischemic attack (TIA), and cerebral infarction without residual deficits; Z90.49 Acquired absence of other specified parts of digestive tract; F17.210 Nicotine dependence, cigarettes, uncomplicated; Z82.49 Family history of ischemic heart disease and other diseases of the circulatory system; Z82.61 Family history of arthritis
CPT/HCPCS: 36415; 36600; 71045; 76705; 76770; 80048; 80053; 80061; 80307; 80320; 81001; 82140; 82550; 82607; 82728; 82746; 82805; 83010; 83036; 83540; 83605; 83615; 83690; 83735; 84100; 84439; 84443; 84466; 84484; 85025; 85045; 85610; 85730; 86850; 86900; 86920; 87040; 87086; 93005; 94799; 99252; 99285; J0360; J0696; J1100; J1756; J1938; J2353; J2470; J3411; J3430; J3475; J7030; J7050; P9016; P9017; P9034